=== PATIENT | male | born 2000 | race Two or more races ===

== ENCOUNTER 2023-02-08 07:42 | Emergency (ER) | payer OTHER ==
[2023-02-08 07:50] VITALS: BP 117/75; PULSE 72; RESP 15; TEMP 98; BMI 24.3
[2023-02-08 08:44] LABS: HEMOGLOBIN 14.6 GM/dL (11.7-16.9); MCH 28.1 pg (25.7-33.7); MCHC 33.3 g/dl (32.0-35.9); MEAN CELL VOLUME 84.4 fl (80-96); MEAN PLT VOLUME 7.9 fl (7.5-11.1); PLATELET COUNT 264 10^3/uL (134-434); RBC 5.22 M/mm3 (4.00-5.60); RDW 13.5 % (11.9-15.9); WHITE BLOOD COUNT 5.2 K/mm3 (4.0-10.0)
[2023-02-08 09:11] LABS: POTASSIUM 4.3 mmol/L (3.5-5.1)
[2023-02-08 09:15] LABS: ALBUMIN 3.7 g/dl (3.4-5.0); BLOOD UREA NITROGEN 15.1 mg/dL (7-18)
[2023-02-08 09:18] LABS: CREATININE 0.9 mg/dL (0.55-1.3)
[2023-02-08 09:19] LABS: BILIRUBIN,TOTAL 0.3 mg/dL (0.2-1); TOT PROT 6.9 g/dl (6.4-8.2)
== END 2023-02-08 10:25 | disposition home or self-care (01) ==
LOC: JER 07:42
DX: R07.89 Other chest pain (principal)
CPT/HCPCS: 36415; 71045-TC-FY; 80053; 84484; 85027; 93005; 93010; 99285-25

== ENCOUNTER 2024-03-20 09:17 | Emergency (ER) | payer OTHER ==
[2024-03-20 09:25] VITALS: RESP 18; BMI 26.6
[2024-03-20] MEDS ORDERED: ACETAMINOPHEN INJECTION 100 ML ONE (10:23)
[2024-03-20] MEDS ORDERED: ONDANSETRON 4 MG/2 ML VIAL ONE (10:23)
[2024-03-20] MEDS: SODIUM CHLORIDE 0.9% 500 ML INFUS.BAG IV ONE (10:36)
[2024-03-20] MEDS: ONDANSETRON 4 MG/2 ML VIAL IVPUSH ONE (10:36)
[2024-03-20 10:37] LABS: INR 1.18 (0.83-1.09); PROTHROMBIN TIME (PATIENT) 13.3 SEC (9.7-13.0)
[2024-03-20] MEDS: ACETAMINOPHEN 500 MG TABLET (FP) PO ONE (10:37)
[2024-03-20] MEDS: ACETAMINOPHEN 1000 MG/100 ML BAG IVPB ONE (10:37)
[2024-03-20] MEDS: ONDANSETRON *ODT* 4 MG TABLET SL ONE (10:38)
[2024-03-20 10:39] LABS: ACTIVATED PTT 31.8 SECONDS (25.2-36.5); BASO % 0.3 % (0-2.0); EOS % 0.4 % (0-4.5); HEMATOCRIT 47.7 % (35.4-49); HEMOGLOBIN 16.4 GM/dL (11.7-16.9); LYMPH % 17.4 % (8-40); MCH 28.2 pg (25.7-33.7); MCHC 34.4 g/dl (32.0-35.9); MEAN PLT VOLUME 7.9 fl (7.5-11.1); MONO % 14.8 % (3.8-10.2); NEUT % 67.1 % (42.8-82.8); PLATELET COUNT 268 10^3/uL (134-434); RBC 5.82 M/mm3 (4.00-5.60); RDW 13.4 % (11.9-15.9); WHITE BLOOD COUNT 7.5 K/mm3 (4.0-10.0)
[2024-03-20 11:02] LABS: POTASSIUM 4.3 mmol/L (3.5-5.1)
[2024-03-20 11:04] LABS: CALCIUM 9.6 mg/dL (8.5-10.1)
[2024-03-20 11:05] LABS: ALBUMIN 4.2 g/dl (3.4-5.0); BLOOD UREA NITROGEN 11.5 mg/dL (7-18); MAGNESIUM 2.2 mg/dL (1.8-2.4)
[2024-03-20 11:10] LABS: BILIRUBIN,TOTAL 0.8 mg/dL (0.2-1); TOT PROT 7.9 g/dl (6.4-8.2)
[2024-03-20] MEDS ORDERED: AZITHROMYCIN 500 MG TABLET ONE (11:10)
[2024-03-20] MEDS: AZITHROMYCIN 250 MG TABLET PO ONE (11:13)
[2024-03-20 11:42] VITALS: BP 116/61; PULSE 68; TEMP 98.2
== END 2024-03-20 12:25 | disposition home or self-care (01) ==
LOC: JERFT 09:17
PROC: 3E033NZ Introduction of Analgesics, Hypnotics, Sedatives into Peripheral Vein, Percutaneous Approach (ICD-10-PCS; principal; 2024-03-20)
PROC: 3E033GC Introduction of Other Therapeutic Substance into Peripheral Vein, Percutaneous Approach (ICD-10-PCS; 2024-03-20)
DX: J45.21 Mild intermittent asthma with (acute) exacerbation (principal); R05.9 Cough, unspecified; R50.9 Fever, unspecified; R07.0 Pain in throat; R19.7 Diarrhea, unspecified; M79.662 Pain in left lower leg; R10.10 Upper abdominal pain, unspecified; R11.10 Vomiting, unspecified; M79.10 Myalgia, unspecified site; Z20.822 Contact with and (suspected) exposure to COVID-19
CPT/HCPCS: 0241U-QW; 36415; 71046-TC-FY; 80053; 83735; 85025; 85610; 85730; 87651; 93005; 93010; 99284-25; J0131